=== PATIENT | female | born 1980 | race African-American/Black ===

== ENCOUNTER 2017-02-17 18:48 | Emergency (ER) | payer OTHER ==
[~2017-02-17 18:48] MED LIST: ISOVUE-370 76%-LOCM 1 ML ONE
--- NOTE | 2017-02-17 19:36 | RAD ---
CHEST ONE VIEW 02/17/17 HISTORY: 36-year-old female with shortness of breath for three days and mid back pain. COMPARISON: 04/10/15. FINDINGS: Heart size is within normal limits. The lungs are clear. IMPRESSION: No acute intrathoracic disease. POS: [facility]
[2017-02-17 20:04] LABS: #Eosinphils 0.1 thou/uL (0.0-0.7); #Lymphocytes 2.4 thou/uL (1.20-3.40); #Monocytes 0.6 thou/uL (0.11-0.59); #Neutrophils 3.6 thou/uL (1.40-6.50); %Basophils 0.5 % (0.0-1.0); %Eosinophils 1.4 % (0.0-10.0); %Lymphocytes 35.6 % (21.0-51.0); %Monocytes 8.4 % (0.0-10.0); Mean Platelet Volume 8.4 fL (7.4-10.4); White Blood Cell (WBC) Count 6.7 thou/uL (4.8-10.8)
[2017-02-17 20:26] LABS: ALT (SGPT) 10 U/L (8-55); AST (SGOT) 18 U/L (5-34); Alkaline Phosphatase 55 U/L (40-150); Anion Gap 13 mmol/L (10-20); BUN (Urea Nitrogen) 13 mg/dL (7.0-18.7); Bilirubin, Total Less than 0.2 mg/dL (0.2-1.2); CK (CPK) 167 U/L (29-168); Calc. Creatinine Clearance 0 mL/min (70-130); Calcium 8.9 mg/dL (7.8-10.44); Carbon Dioxide 23 mmol/L (22-29); Chloride 107 mmol/L (98-107); Estimated GFR-MDRD 73; Globulin 3.8 g/dL (2.4-3.5); Protein, Total 7.1 g/dL (6.0-8.3)
[2017-02-17 20:31] LABS: Troponin I Less than 0.010 ng/mL (< 0.028)
[2017-02-17] MEDS ORDERED: Nitroglycerin 2% Ointment 1 INCH/1 GM Packet ONE (21:01)
--- NOTE | 2017-02-17 21:43 | CT ---
CHEST CT ANGIOGRAM: 02/17/17 HISTORY: 36-year-old female with chest pain, fatigue, and back pain. Exam includes 3D rendering. No significant CT evidence for acute pulmonary embolism. No mediastinal mass or adenopathy. Upper ra nge of normal sized heart. No evidence for aortic aneurysm or dissection. No pleural effusion or pe ricardial effusion. IMPRESSION: No significant CT evidence for acute pulmonary embolism or other significant acute intrathoracic pro cess. POS: [facility]
== END 2017-02-17 23:09 | disposition home or self-care (01) ==
LOC: ERS 18:48
DX: R06.00 Dyspnea, unspecified (principal); R60.0 Localized edema; E66.9 Obesity, unspecified; G43.909 Migraine, unspecified, not intractable, without status migrainosus; K21.9 Gastro-esophageal reflux disease without esophagitis; I10 Essential (primary) hypertension; F41.9 Anxiety disorder, unspecified; F17.210 Nicotine dependence, cigarettes, uncomplicated
CPT/HCPCS: 36415; 71010; 71275; 80053; 82553; 83690; 84484; 85025; 85379; 93005

== ENCOUNTER 2017-04-11 23:40 | Emergency (ER) | payer OTHER ==
[2017-04-12] MEDS ORDERED: Dexamethasone 4 mg/ml Vial ONE (01:22)
[2017-04-12] MEDS ORDERED: Ibuprofen 800 MG TAB ONE (01:22)
== END 2017-04-12 01:50 | disposition home or self-care (01) ==
LOC: ERS 23:40
DX: J02.9 Acute pharyngitis, unspecified (principal); E66.9 Obesity, unspecified; G43.909 Migraine, unspecified, not intractable, without status migrainosus; K21.9 Gastro-esophageal reflux disease without esophagitis; I10 Essential (primary) hypertension; F41.9 Anxiety disorder, unspecified; F32.9 Major depressive disorder, single episode, unspecified; F17.210 Nicotine dependence, cigarettes, uncomplicated
CPT/HCPCS: 96372; 99406; J1100

== ENCOUNTER 2019-10-31 13:34 | Observation (INO) | payer OTHER ==
[~2019-10-31 13:34] MED LIST changes: -ISOVUE-370 76%-LOCM 1 ML ONE; +Iopamidol-370 76% 500 ML 1 ML ONE
--- NOTE | 2019-10-31 14:18 | RAD ---
XR Chest 1 View Portable HISTORY: Chest pain COMPARISON: 02/17/2017 FINDINGS: The heart size is at upper limits of normal. The lungs are well expanded without focal area s of consolidation, pneumothorax or pleural effusions. IMPRESSION: No radiographic evidence of acute cardiopulmonary process.
[2019-10-31 14:21] LABS: #Eosinphils 0.1 thou/uL (0.0-0.7); #Monocytes 0.4 thou/uL (0.11-0.59); #Neutrophils 3.5 thou/uL (1.40-6.50); %Basophils 0.7 % (0.0-1.0); %Eosinophils 1.5 % (0.0-10.0); %Lymphocytes 33.4 % (21.0-51.0); %Neutrophils 57.4 % (42.0-75.0); Hemoglobin 11.6 g/dL (12.0-16.0); Mean Corpuscular HGB CONC 32.4 g/dL (32.0-36.0); Mean Corpuscular Hemoglobin 29.7 pg (27.0-31.0); Mean Corpuscular Volume 91.8 fL (78.0-98.0); Mean Platelet Volume 9.2 fL (7.4-10.4); Platelet Count 241 thou/uL (130-400); RBC Distribution Width 13.1 % (11.5-14.5); Red Blood Cell (RBC) Count 3.91 mill/uL (4.20-5.40); White Blood Cell (WBC) Count 6.1 thou/uL (4.8-10.8)
[2019-10-31 14:31] LABS: BHCG - Serum Negative (NEGATIVE); Pregs Control Background? CLEAR/WHITE (CLR/WHITE); Pregs Control Bar Appear? YES (CONTROL BAR)
[2019-10-31] MEDS ORDERED: Aspirin 325 MG TAB ONE (14:33)
[2019-10-31] MEDS ORDERED: Nitroglycerin 2% Ointment 1 INCH/1 GM Packet ONE (14:33)
[2019-10-31 14:49] LABS: CKMB 0.8 ng/mL (0-6.6)
[2019-10-31 14:54] LABS: Bilirubin Negative (Negative); Blood, Urine Negative (Negative); Clarity Clear (Clear); Glucose, Urine (Dipstick) Normal (Negative); Leukocyte Negative Leu/uL (Negative); Nitrite Negative (Negative); Protein, Urine (Dipstick) Negative (Neg-Trace); Urobilinogen Normal mg/dL (Less than 2)
[2019-10-31 15:00] LABS: ALT (SGPT) 21 U/L (8-55); AST (SGOT) 26 U/L (5-34); Albumin 3.7 g/dL (3.5-5.0); Alkaline Phosphatase 59 U/L (40-110); Anion Gap 12 mmol/L (10-20); BUN (Urea Nitrogen) 12 mg/dL (7.0-18.7); Bilirubin, Total Less than 0.2 mg/dL (0.2-1.2); CK (CPK) 154 U/L (29-168); Calc. Creatinine Clearance 0 mL/min (70-130); Calcium 8.9 mg/dL (7.8-10.44); Carbon Dioxide 21 mmol/L (22-29); Chloride 106 mmol/L (98-107); Estimated GFR-MDRD 70; Globulin 3.8 g/dL (2.4-3.5); Glucose 92 mg/dL (70-105); Lipase 46 U/L (8-78); Potassium 3.9 mmol/L (3.5-5.1); Protein, Total 7.5 g/dL (6.0-8.3); Sodium 135 mmol/L (136-145)
--- NOTE | 2019-10-31 15:26 | CT ---
CTA CHEST WITH CONTRAST: 10/31/19 Axial tomograms are obtained following angio protocol with multiplanar reconstruction and 3D postproc essing. INDICATIONS: Elevated D-dimer. Left chest pain with shortness of breath. Assess for pulmonary embolus. FINDINGS: Pulmonary arteries are adequately opacified. No evidence of pulmonary embolus identified. The lung villa are clear. No infiltrate identified. No evidence of effusion. Mediastinum unremarkable. No mass or adenopathy. Thoracic aorta unremarkable. Images through upper ab domen unremarkable. IMPRESSION: 1. No evidence of pulmonary embolus. 2. No acute lung process identified. POS: [facility]
--- NOTE | 2019-10-31 15:29 | PDOC.FPRHP ---
- History of Present Illness Chief Complaint: Chest Pain History of Present Illness: Patient is a 38 y/o female who presents to the ED for evaluation of chest pain. Patient states that she has had this chest pain intermittently for years, but she was concerned because she had also recently had an URI - associated with a sore throat and cough - and wanted to be evaluated fully. Patient states that the pain is left-sided and characterized as a "pressure" without radiation, but denied that it was associated with exertion or relieved with rest. Patient thought that the pain may also be associated with taking deep breaths, but was unsure when questioned further. Patient denied any associated symptoms such as N/V, diaphoresis, pre-syncope or syncope, pain reproducible with palpation, visual disturbances, rhinorrhea, epistaxis, palpitations, fevers, chills, ABD pain, diarrhea, constipation, dysuria, hematuria, vaginal discharge, recent travel known sick contacts. Patient states that she has been taking Theraflu and Mucinex intermittently for 1 week and feels that this has helped with her symptoms. She states that she feels better today than she has all week. ED Course: s/p ASA and Nitro - Allergies/Adverse Reactions Allergies Allergy/AdvReac Type Severity Reaction Status Date / Time No Known Drug Allergies Allergy Verified 10/31/19 17:00 - History PMHx: HTN, MDD, CHRIS, Tobacco Abuse, Obesity PSHx: None FHx: Mother (HTN, questionable CVA) Social: Tobacco Abuse (0.5 PPD), Social EtOH, denies Drug Abuse. - Review of Systems General: denies: fever/chills, fatigue Eyes: denies: vision changes ENT: denies: nasal congestion, rhinorrhea Respiratory: reports: cough, congestion. denies: shortness of breath, exercise intolerance Cardiovascular: reports: chest pain. denies: palpitation, edema, paroxysmal nocturnal dyspnea Gastrointestinal: denies: nausea, vomiting, diarrhea, constipation, abdominal pain, GI bleeding Genitourinary: denies: dysuria, discharge Musculoskeletal: denies: pain, arthritis/arthralgias Neurological: denies: syncope, weakness Psychological: reports: anxiety, depression - Vital signs BP: [149/96] HR: [59] RR: [18] Tmax: [] Pox: [98]% on [Room] Wt: [] - Physical Exam Constitutional: NAD, awake, alert and oriented, well developed HEENT: normocephalic and atraumatic, PERRLA, EOMI, conjunctiva clear, no scleral icterus, grossly normal vision, grossly normal hearing, normal nasal mucosa, MMM, oropharynx clear Neck: supple, FROM, trachea midline, no LAD, no JVD Chest: no-tender to palpation, no lesions Heart: RRR, normal S1/S2, no murmurs/rubs/gallops, pulses present, no edema Lungs: CTAB, no respiratory distress, good air movement, no rales/rhonchi, no wheezing, no retractions Abdomen: soft, non-tender, bowel sounds present, no masses/distention Musculoskeletal: normal structure, ROM grossly normal Neurological: no focal deficit Skin: no jaundice Heme/Lymphatic: no unusual bruising or bleeding, no purpura, no petechia, no LAD Psychiatric: normal mood and affect, good judgment and insight, intact recent and remote memory FMR H&P: Results - Labs Result Diagrams: 10/31/19 14:05 10/31/19 14:05 Lab results: WBC 6.1 thou/uL (4.8-10.8) 10/31/19 14:05 Hgb 11.6 g/dL (12.0-16.0) L 10/31/19 14:05 Hct 35.9 % (36.0-47.0) L 10/31/19 14:05 MCV 91.8 fL (78.0-98.0) 10/31/19 14:05 Plt Count 241 thou/uL (130-400) 10/31/19 14:05 Neutrophils % 57.4 % (42.0-75.0) 10/31/19 14:05 Sodium 135 mmol/L (136-145) L 10/31/19 14:05 Potassium 3.9 mmol/L (3.5-5.1) 10/31/19 14:05 Chloride 106 mmol/L (98-107) 10/31/19 14:05 Carbon Dioxide 21 mmol/L (22-29) L 10/31/19 14:05 BUN 12 mg/dL (7.0-18.7) 10/31/19 14:05 Creatinine 1.06 mg/dL (0.6-1.1) 10/31/19 14:05 Glucose 92 mg/dL (70-105) 10/31/19 14:05 Calcium 8.9 mg/dL (7.8-10.44) 10/31/19 14:05 Total Bilirubin Less than 0.2 mg/dL (0.2-1.2) L 10/31/19 14:05 AST 26 U/L (5-34) 10/31/19 14:05 ALT 21 U/L (8-55) 10/31/19 14:05 Alkaline Phosphatase 59 U/L (40-110) 10/31/19 14:05 Creatine Kinase 154 U/L (29-168) 10/31/19 14:05 CK-MB (CK-2) 0.8 ng/mL (0-6.6) 10/31/19 14:05 B-Natriuretic Peptide 11.4 pg/mL (0-100) 10/31/19 14:05 Serum Total Protein 7.5 g/dL (6.0-8.3) 10/31/19 14:05 Albumin 3.7 g/dL (3.5-5.0) 10/31/19 14:05 Lipase 46 U/L (8-78) 10/31/19 14:05 Urine Ketones Negative mg/dL (Negative) 10/31/19 14:40 Urine Blood Negative (Negative) 10/31/19 14:40 Urine Nitrite Negative (Negative) 10/31/19 14:40 Ur Leukocyte Esterase Negative Kate/uL (Negative) 10/31/19 14:40 - EKG Interpretation EKG: Non-Specific Changes w/o evidence of ST-Segment Elevation - Radiology Interpretation Chest x-ray Status: report reviewed by me (NAF) Other Additional comment: CTA Chest/Thorax: No evidence of PE or Acute Lung Process FMR H&P: A/P - Problem List (1) MDD (major depressive disorder) Current Visit: Yes Status: Acute Code(s): F32.9 - MAJOR DEPRESSIVE DISORDER , SINGLE EPISODE, UNSPECIFIED (2) CHRIS (generalized anxiety disorder) Current Visit: Yes Status: Acute Code(s): F41.1 - GENERALIZED ANXIETY DISORDER (3) Obesity Current Visit: Yes Status: Acute Code(s): E66.9 - OBESITY, UNSPECIFIED (4) Tobacco abuse Current Visit: Yes Status: Acute Code(s): Z72.0 - TOBACCO USE (5) Chest pain Current Visit: Yes Status: Acute Code(s): R07.9 - CHEST PAIN, UNSPECIFIED - Plan Patient is a 38 y/o female with a PMH significant for HTN who presents to the ED for evaluation of Chest Pain. 1. Chest Pain, ACS r/o -Patient's chest pain does not appear acute, and may be exacerbated by recent URI, ongoing Tobacco Abuse and Morbid Obesity -VSS with unremarkable physical exam -Trops: Negative x1 - will continue to trend -D-Dimer: 0.58 - mildly elevated -EKG: Non-specific changes w/o evidence of ST-Segment Elevation -CXR: NAF -CTA Chest/Thorax: NAF -HEART Score: 3 -s/p ASA and Nitro in ED - not currently in pain or requiring supplemental O2 2. HTN -Patient is unsure of her current medication regimen and may take some medications intermittently -Per chart review, patient currently takes Metoprolol 100 mg PO daily and Amlodipine 10 mg PO daily -Will restart patient's home medication regimen 3. MDD -Stable -Will restart patient's home medication regimen 4. CHRIS -Stable -Will restart patient's home medication regimen 5. Tobacco Abuse -Patient currently smokes 0.5 PPD -Will school counselor on the importance of Tobacco Abuse cessation PCP: [facility] Code: Full Diet: Heart Healthy Activity: Ad janel IVF: None VTE: SCDs Dispo: Patient is currently stable and admitted to the Telemetry Floor for ongoing evaluation. Due to chronic nature of patient's chief complaint, unremarkable physical exam, unremarkable EKG, unremarkable Troponin, and low Heart Score, will admit this patient to the Telemetry Floor and trend Troponins as per above. Will plan to DC if no additional chest pain symptoms arise, no arrythmias are seen while being monitored, and no significant elevation of serial Troponins are noted. Expected LOS < 12H. FMR H&P: Upper Level - Plan Date/Time: 10/31/19 1529 Ghanshyam Castaneda DO, have evaluated this patient and agree with findings/plan as outlined by manager of internal resident. Pertinent changes/additions are listed here. This is a 38 yo female with a pmh of HTN, GERD, anxiety/depression, who presents to the ER with a cc of cough and chest pain. She states for the last two weeks she has been coughing that has improved at this point following the use of mucinex. She states her second complaint is that of chest pain. She states it is in her left upper chest with radiation to her shoulder. She states this pain has been on going for months and is not associated with exertion, nausea, dizziness, SOB, or clamminess. She reports a mild palpitation that comes and goes but is never sustained. She states that she had a stress test in the past at [facility] clinic and was told to follow up but she never did. She reports a 10 year pack history, possible 1st degree relative with a stroke, but no early cardiac disease in her family. Objective: Vitals: BP 149/96, HR 61, RR 16, Temp 98.7, SpO2 100 on RA General: NAD HEENT: MMM, AT/NC Cardio: RRR, no murmur Respiratory: CTAB, no adventious sounds A/P Atypical chest pain likely related to recent cough -Admit to tele for short stay and delta trop -Heart score of 2 -Troponin negative x1 -CXR neg, CTA negative for PE -BNP negative -Pt likely needs outpt follow up with cardiology See manager of internal note for further details and management of chronic illnesses Code: Full Prophylaxis: None Family: Mother at bedside Fluids: SL Diet: HH Disposition: DC if delta troponin remains negative PCP: Dr. Scott, [facility] Addendum - Attending - Attending Attestation Date/Time: 10/31/19 3451 I personally evaluated the patient and discussed the management with Dr. Cabrera I agree with the History, Examination, Assessment and Plan documented above with any addition or exceptions noted below - 38 y/o female with complaint of chest pain. Has had this chest pain intermittently for years, but she was concerned because she had also recently had an URI - associated with a sore throat and cough. Pain is left-sided and described as a pressure without radiation. No associated SOB, diaphoresis, N/V, palpitations. No chnage in pain with exertion. Patient states that she has been taking Theraflu and Mucinex intermittently for 1 week and feels that this has helped with her symptoms. She states that she feels better today than she has all week. PMH/PSH/ Meds/SH reviewed and agree with resident's documentation. Afebrile VSS. EXam repeated by me and agree with resident's findings. EKG- NSR, nonspecific ST changes. Troponin I < 0.010 x2. A/P: 1) Atypical chest pain- delta roponin negative; Heart score=3; will d/c home and have patient follow-up in clinic.
[2019-10-31 16:55] VITALS: BP 136/93
[2019-10-31] MEDS ORDERED: Ondansetron ODT 4 MG TAB SL PRN (16:55)
[2019-10-31] MEDS ORDERED: Ondansetron PF 4 MG/2 ML Vial IVP PRN (16:55)
[2019-10-31] MEDS ORDERED: Ondansetron ODT 4 MG TAB PO PRN (17:04)
[2019-10-31] MEDS ORDERED: Acetaminophen 325 MG TAB PO PRN (17:04)
[2019-10-31 17:25] VITALS: BMI 50.7
[2019-10-31 18:01] LABS: Troponin I Less than 0.010 ng/mL (< 0.028)
--- NOTE | 2019-11-01 07:29 | DIS ---
DATE OF ADMISSION: 10/31/2019 DATE OF DISCHARGE: 10/31/2019 RESIDENT: Jeuss Cabrera MD ADMITTING ATTENDING: Elisabeth Florentino MD DISCHARGE ATTENDING: Elisabeth Florentino MD CONSULTS: None. PROCEDURES PERFORMED: Chest x-ray performed on 10/30, which revealed no radiographic evidence of acute cardiopulmonary process. CTA chest thorax performed on 10/30, which revealed no evidence of pulmonary embolus or acute lung process. PRIMARY DIAGNOSIS: Atypical chest pain, most likely related to costochondritis secondary to recent upper respiratory infection. SECONDARY DIAGNOSES: 1. Hypertension. 2. Major depressive disorder. 3. Generalized anxiety disorder. 4. Tobacco abuse. 5. Obesity. DISCHARGE MEDICATIONS: -Buspirone 20 mg PO daily -Metoprolol 100 mg PO daily -Amlodipine 10 mg PO daily -Protonix 40 mg PO daily DISCONTINUED MEDICATIONS: None. HISTORY OF PRESENT ILLNESS/HOSPITAL COURSE: The patient is a 38-year-old female, who presented to the ED for evaluation of chest pain. The patient states she had this chest pain intermittently for years, but she was concerned because she had also recently had a UTI and was associated with sore throat and cough and wanted to be evaluated fully. The patient states the pain is left- sided and characterized as a pressure without radiation, but denied that it was associated with exertion and relieved with rest. The patient thought the pain may also be associated with taking deep breaths, but was unsure when questioned further. The patient denied any associated symptoms such as nausea, vomiting, diaphoresis, presyncope, or syncope. Pain reproducible with palpation, visual disturbances, rhinorrhea, epistaxis, palpitations, fever, chills, abdominal pain, diarrhea, constipation, dysuria, hematuria, vaginal discharge, recent travel, or known sick contacts. The patient states she has been taking TheraFlu and Mucinex intermittently for 1 week because this has helped her symptoms. She states that she felt better on the day of evaluation that she had all week previously. While in the ED, the patient was given aspirin and nitroglycerin. Imaging was performed, the results of which are mentioned elsewhere in this document. EKG showed nonspecific ST changes without evidence of ST-segment elevation. Initial troponin was negative. Subsequent troponin drawn 3.5 hours later was also negative. As the patient denied any recurrent chest pain, was not requiring supplemental oxygen, did not demonstrate any abnormalities on the rhythm strip while being monitored on the telemetry floor. She was subsequently prepped for discharge. Prior to discharge, vital signs were recorded as pulse 61, respirations 19 per minute, oxygen saturation 99% on room air, blood pressure 136/93. LABORATORY ANALYSIS: Includes sodium of 135, potassium 3.9, chloride 106, carbon dioxide 21, BUN 12, creatinine 1.06, glucose 92, calcium 8.9, total bilirubin less than 0.2, AST 26, ALT 21, alkaline phosphatase 59, creatine kinase 154, CK-MB 0.8. Troponins negative x2. BNP 11.4. Serum test negative. Lipase 46. DISPOSITION: Stable. DISCHARGE INSTRUCTIONS: 1. Location: Home. 2. Diet: Heart healthy. 3. Activity: No restrictions. 4. Followup: The patient was encouraged to follow up with [place] [facility] physicians in 1 week in order to discuss her most recent hospitalization as well as ongoing medical management of her other chronic medical conditions. Job ID: [id number] [email or web address]
--- NOTE | 2019-11-04 14:52 | EKG ---
Test Reason : Blood Pressure : / mmHG Vent. Rate : 065 BPM Atrial Rate : 065 BPM P-R Int : 188 ms QRS Dur : 088 ms QT Int : 416 ms P-R-T Axes : 023 048 054 degrees QTc Int : 432 ms Normal sinus rhythm Nonspecific T wave abnormality Abnormal ECG Confirmed by ANTONY MORENO, TARAH ([id number]), online editor VICTOR MANUEL MORA ([id number]) on 11/04/2019 2:52:15 PM Referred By: Confirmed By:TARAH HARDY MD
== END 2019-10-31 19:40 | disposition home or self-care (01) ==
LOC: ERS 13:34 → 2NO 16:45
PROVIDERS: ADMIT Family Medicine; ATTEND Family Medicine
DX: R07.89 Other chest pain (principal); I10 Essential (primary) hypertension; F32.9 Major depressive disorder, single episode, unspecified; F41.1 Generalized anxiety disorder; F17.210 Nicotine dependence, cigarettes, uncomplicated; K21.9 Gastro-esophageal reflux disease without esophagitis; E66.01 Morbid (severe) obesity due to excess calories; Z68.43 Body mass index [BMI] 50.0-59.9, adult; Z79.899 Other long term (current) drug therapy
CPT/HCPCS: 36415; 71045; 71275; 80053; 81003; 82550; 82553; 83690; 83880; 84484; 84703; 85025; 85379; 93005; G0378; Q9967

== ENCOUNTER 2020-04-15 00:45 | Emergency (ER) | payer OTHER ==
[2020-04-15] MEDS ORDERED: Boostrix 0.5 ML (Tdap) VIAL ONE (01:54)
[2020-04-15] MEDS ORDERED: Lidocaine 1% PF 5 ML VIAL ONE (02:06)
[2020-04-15] MEDS ORDERED: Bacitracin 1 PK ONE ×2 (02:39→02:40)
== END 2020-04-15 03:13 | disposition home or self-care (01) ==
LOC: ERS 00:45
DX: S61.214A Laceration without foreign body of right ring finger without damage to nail, initial encounter (principal); S61.212A Laceration without foreign body of right middle finger without damage to nail, initial encounter; S61.216A Laceration without foreign body of right little finger without damage to nail, initial encounter; E66.9 Obesity, unspecified; K21.9 Gastro-esophageal reflux disease without esophagitis; I10 Essential (primary) hypertension; F17.210 Nicotine dependence, cigarettes, uncomplicated; Z79.899 Other long term (current) drug therapy; Z23 Encounter for immunization; X99.0XXA Assault by sharp glass, initial encounter
CPT/HCPCS: 12001; 90471; 90715

== ENCOUNTER 2020-05-01 19:05 | Emergency (ER) | payer OTHER | END 2020-05-01 19:58 | disposition home or self-care (01) | LOC: ERS 19:05 | DX: Z76.0 Encounter for issue of repeat prescription (principal); I10 Essential (primary) hypertension; G43.909 Migraine, unspecified, not intractable, without status migrainosus; K21.9 Gastro-esophageal reflux disease without esophagitis; F17.210 Nicotine dependence, cigarettes, uncomplicated; Z79.899 Other long term (current) drug therapy | CPT/HCPCS: 99281 ==

== ENCOUNTER 2020-05-14 17:16 | Emergency (ER) | payer OTHER ==
[2020-05-14] MEDS ORDERED: Ibuprofen 200 MG TAB ONE (20:46)
[2020-05-14] MEDS ORDERED: Metoprolol Tartrate 50 MG TAB ONE (20:46)
== END 2020-05-14 21:15 | disposition home or self-care (01) ==
LOC: ERS 17:16
DX: I10 Essential (primary) hypertension (principal); G43.909 Migraine, unspecified, not intractable, without status migrainosus; K21.9 Gastro-esophageal reflux disease without esophagitis; F17.210 Nicotine dependence, cigarettes, uncomplicated
CPT/HCPCS: 99283

== ENCOUNTER 2020-10-24 00:06 | Emergency (ER) | payer OTHER ==
[2020-10-24] MEDS ORDERED: Lidocaine 1% w/Epinephrine 1:100K 20 ML VIAL ONE (02:19)
[2020-10-24] MEDS ORDERED: Bacitracin 1 PK ONE (03:06)
== END 2020-10-24 03:11 | disposition home or self-care (01) ==
LOC: ERS 00:06
DX: S81.012A Laceration without foreign body, left knee, initial encounter (principal); E66.9 Obesity, unspecified; G43.909 Migraine, unspecified, not intractable, without status migrainosus; K21.9 Gastro-esophageal reflux disease without esophagitis; I10 Essential (primary) hypertension; F17.210 Nicotine dependence, cigarettes, uncomplicated; Z79.899 Other long term (current) drug therapy; W01.0XXA Fall on same level from slipping, tripping and stumbling without subsequent striking against object, initial encounter
CPT/HCPCS: 12002